=== PATIENT | female | born 1980 | race African-American/Black ===

== ENCOUNTER 2018-04-18 10:50 | Inpatient (IN) | payer OTHER ==
[2018-04-18] MEDS ORDERED: METHOCARBAMOL 500 MG TAB PO (12:30)
[2018-04-18] MEDS ORDERED: ACETAMINOPHEN 325 MG TAB PO (12:30)
[2018-04-18] MEDS ORDERED: NACL 0.9% 3 ML SYG IV (12:30)
[2018-04-18] MEDS ORDERED: ONDANSETRON 4 MG INJ IV (12:30)
[2018-04-18] MEDS: CITALOPRAM 20 MG TAB PO (13:49)
[2018-04-18] MEDS: TOPIRAMATE 100 MG TAB PO ×2 (13:49→21:41)
[2018-04-18] MEDS: LEVETIRACETAM 500 MG TAB PO ×2 (13:49→21:42)
[2018-04-18] MEDS: AMLODIPINE 2.5 MG TAB PO (13:49)
[2018-04-18] MEDS: LORATADINE 10 MG TAB PO (13:49)
[2018-04-18] MEDS: ACETAZOLAMIDE (SR) 500 MG CAP PO ×2 (13:49→21:41)
[2018-04-18] MEDS: FUROSEMIDE 20 MG TAB PO (13:53)
[2018-04-18] MEDS: NICOTINE (21 MG/24 HR) PATCH TRANSDERM (15:00)
[2018-04-18] MEDS: morphine 2 MG INJ IV (16:11)
[2018-04-18] MEDS: ONDANSETRON 4 MG INJ IV (16:11)
[2018-04-18] MEDS: MIRTAZAPINE 15 MG TAB PO (21:42)
[2018-04-19 06:00] LABS: ADD MAN DIFF? NO
[2018-04-19] MEDS: morphine 2 MG INJ IV ×3 (06:05→21:10)
[2018-04-19 06:38] LABS: ANION GAP 10 (8-16); BLOOD UREA NITROGEN 8 mg/dl (7-20); CALCIUM 8.7 mg/dl (8.4-10.2); CARBON DIOXIDE 17 mmol/L (21-31); CHLORIDE 120 mmol/L (97-110); GLUCOSE 88 mg/dl (70-220); MAGNESIUM 2.2 mg/dl (1.7-2.5); POTASSIUM 3.9 mmol/L (3.5-5.1); SODIUM 143 mmol/L (135-144)
[2018-04-19 06:43] LABS: WHITE BLOOD COUNT 8.7 10^3/ul (4.8-10.8)
[2018-04-19 06:43] LABS: BASOPHILS % 0.5 % (0.0-2.0); EOSINOPHILS # 0.2 10^3/ul (0.0-0.5); EOSINOPHILS % 1.7 % (0.0-7.0); HEMATOCRIT 38.3 % (37.0-47.0); HEMOGLOBIN 12.3 g/dl (12.0-16.0); LYMPHOCYTES # 3.9 10^3/ul (0.8-2.9); LYMPHOCYTES % 45.3 % (15.0-51.0); MEAN CORPUSCULAR HEMOGLOBIN 27.2 pg (29.0-33.0); MEAN CORPUSCULAR HGB CONC 32.1 g/dl (32.0-37.0); MEAN CORPUSCULAR VOLUME 84.5 fl (82.0-101.0); MEAN PLATELET VOLUME 12.5 fl (7.4-10.4); MONOCYTE # 0.5 10^3/ul (0.3-0.9); MONOCYTES % 5.5 % (0.0-11.0); NEUTROPHILS % 46.7 % (39.0-77.0); PLATELET COUNT 140 10^3/UL (140-415); RED BLOOD COUNT 4.53 10^6/ul (4.20-5.40); RED CELL DISTRIBUTION WIDTH 16.9 % (11.5-14.5)
[2018-04-19] MEDS: TOPIRAMATE 100 MG TAB PO ×2 (09:07→21:10)
[2018-04-19] MEDS: CITALOPRAM 20 MG TAB PO (09:07)
[2018-04-19] MEDS: LORATADINE 10 MG TAB PO (09:08)
[2018-04-19] MEDS: FUROSEMIDE 20 MG TAB PO (09:08)
[2018-04-19] MEDS: NICOTINE (21 MG/24 HR) PATCH TRANSDERM (09:08)
[2018-04-19] MEDS: LEVETIRACETAM 500 MG TAB PO ×2 (09:08→21:09)
[2018-04-19] MEDS: AMLODIPINE 2.5 MG TAB PO (09:08)
[2018-04-19] MEDS: ACETAZOLAMIDE (SR) 500 MG CAP PO ×3 (09:08→21:09)
[2018-04-19 10:30] LABS: ANISOCYTOSIS 1+ (0-0); BAND NEUTROPHILS % (M) 1 % (0-4); EOSINOPHILS % (M) 2 % (0-7); LYMPHOCYTES #M 4.4 10^3/ul (0.8-2.9); LYMPHOCYTES % (M) 51 % (15-51); METAMYELOCYTES #M 0.1 10^3/ul (0.0-0.0); METAMYELOCYTES %M 2 % (0-0); MONOCYTE #M 0.4 10^3/ul (0.3-0.9); MONOCYTES % (M) 5 % (0-11); PLATELET ESTIMATE DECREASED; PLATELET MORPHOLOGY COMMENT @See below; REACTIVE LYMPHOCYTES #M 0.7 10^3/ul (0.0-0.0); REACTIVE LYMPHOCYTES% (M) 9 % (0-0); SEG NEUT #M 2.6 10^3/ul (1.6-7.5); SEGMENTED NEUTROPHILS (M) % 30 % (39-77); SMUDGE%M 16 % (0-0)
[2018-04-19] MEDS: LORAZEPAM 2 MG INJ IV ×2 (11:16→16:23)
[2018-04-19] MEDS: ONDANSETRON 4 MG INJ IV (15:08)
[2018-04-19] MEDS: MIRTAZAPINE 15 MG TAB PO (21:10)
[2018-04-20] MEDS: morphine 2 MG INJ IV ×3 (06:38→22:12)
[2018-04-20 06:46] LABS: ADD MAN DIFF? NO
[2018-04-20 06:53] LABS: BASOPHILS % 0.4 % (0.0-2.0); EOSINOPHILS # 0.1 10^3/ul (0.0-0.5); EOSINOPHILS % 1.5 % (0.0-7.0); HEMATOCRIT 39.1 % (37.0-47.0); HEMOGLOBIN 12.4 g/dl (12.0-16.0); LYMPHOCYTES # 3.9 10^3/ul (0.8-2.9); LYMPHOCYTES % 43.1 % (15.0-51.0); MEAN CORPUSCULAR HEMOGLOBIN 27.1 pg (29.0-33.0); MEAN CORPUSCULAR HGB CONC 31.7 g/dl (32.0-37.0); MEAN CORPUSCULAR VOLUME 85.6 fl (82.0-101.0); MEAN PLATELET VOLUME 11.8 fl (7.4-10.4); MONOCYTE # 0.5 10^3/ul (0.3-0.9); NEUTROPHIL # 4.3 10^3/ul (1.6-7.5); NEUTROPHILS % 48.6 % (39.0-77.0); PLATELET COUNT 345 10^3/UL (140-415); RED BLOOD COUNT 4.57 10^6/ul (4.20-5.40); RED CELL DISTRIBUTION WIDTH 17.1 % (11.5-14.5)
[2018-04-20 06:53] LABS: WHITE BLOOD COUNT 8.9 10^3/ul (4.8-10.8)
[2018-04-20] MEDS: TOPIRAMATE 100 MG TAB PO ×2 (08:14→20:12)
[2018-04-20] MEDS: LEVETIRACETAM 500 MG TAB PO ×2 (08:14→20:12)
[2018-04-20] MEDS: CITALOPRAM 20 MG TAB PO (08:14)
[2018-04-20] MEDS: ACETAZOLAMIDE (SR) 500 MG CAP PO ×3 (08:14→20:12)
[2018-04-20] MEDS: AMLODIPINE 2.5 MG TAB PO (08:15)
[2018-04-20] MEDS: LORATADINE 10 MG TAB PO (08:15)
[2018-04-20] MEDS: FUROSEMIDE 20 MG TAB PO (08:15)
[2018-04-20] MEDS: NICOTINE (21 MG/24 HR) PATCH TRANSDERM (08:15)
[2018-04-20 08:51] LABS: ANION GAP 11 (8-16); BLOOD UREA NITROGEN 11 mg/dl (7-20); CALCIUM 8.9 mg/dl (8.4-10.2); CARBON DIOXIDE 18 mmol/L (21-31); CHLORIDE 117 mmol/L (97-110); CREATININE 0.94 mg/dl (0.44-1.00); GLUCOSE 89 mg/dl (70-220); PHOSPHORUS 4.6 mg/dl (2.5-4.9); POTASSIUM 3.4 mmol/L (3.5-5.1); SODIUM 143 mmol/L (135-144)
[2018-04-20] MEDS: POTASSIUM CHLORIDE 20 MEQ POWDER FOR ORAL SOLN PO (17:36)
[2018-04-20] MEDS: MIRTAZAPINE 15 MG TAB PO (20:12)
[2018-04-20] MEDS: LORAZEPAM 0.5 MG TAB PO (20:12)
[2018-04-21 06:52] LABS: ADD MAN DIFF? NO
[2018-04-21 07:01] LABS: WHITE BLOOD COUNT 9.2 10^3/ul (4.8-10.8)
[2018-04-21 07:01] LABS: BASOPHIL # 0.1 10^3/ul (0.0-0.1); BASOPHILS % 0.5 % (0.0-2.0); EOSINOPHILS # 0.1 10^3/ul (0.0-0.5); EOSINOPHILS % 1.4 % (0.0-7.0); HEMATOCRIT 40.8 % (37.0-47.0); HEMOGLOBIN 12.8 g/dl (12.0-16.0); LYMPHOCYTES # 3.8 10^3/ul (0.8-2.9); LYMPHOCYTES % 40.9 % (15.0-51.0); MEAN CORPUSCULAR HEMOGLOBIN 26.5 pg (29.0-33.0); MEAN CORPUSCULAR HGB CONC 31.4 g/dl (32.0-37.0); MEAN CORPUSCULAR VOLUME 84.5 fl (82.0-101.0); MEAN PLATELET VOLUME 11.6 fl (7.4-10.4); MONOCYTE # 0.6 10^3/ul (0.3-0.9); MONOCYTES % 6.1 % (0.0-11.0); NEUTROPHIL # 4.7 10^3/ul (1.6-7.5); NEUTROPHILS % 50.8 % (39.0-77.0); PLATELET COUNT 337 10^3/UL (140-415); RED BLOOD COUNT 4.83 10^6/ul (4.20-5.40); RED CELL DISTRIBUTION WIDTH 17.1 % (11.5-14.5)
[2018-04-21 08:02] LABS: ANION GAP 13 (8-16); BLOOD UREA NITROGEN 13 mg/dl (7-20); CALCIUM 8.8 mg/dl (8.4-10.2); CARBON DIOXIDE 17 mmol/L (21-31); CHLORIDE 116 mmol/L (97-110); CREATININE 0.88 mg/dl (0.44-1.00); GLUCOSE 100 mg/dl (70-220); MAGNESIUM 2.1 mg/dl (1.7-2.5); PHOSPHORUS 4.3 mg/dl (2.5-4.9); POTASSIUM 3.8 mmol/L (3.5-5.1); SODIUM 142 mmol/L (135-144)
[2018-04-21] MEDS: FUROSEMIDE 20 MG TAB PO (08:14)
[2018-04-21] MEDS: ACETAZOLAMIDE (SR) 500 MG CAP PO ×2 (08:14→13:53)
[2018-04-21] MEDS: AMLODIPINE 2.5 MG TAB PO (08:15)
[2018-04-21] MEDS: LEVETIRACETAM 500 MG TAB PO (08:15)
[2018-04-21] MEDS: LORATADINE 10 MG TAB PO (08:15)
[2018-04-21] MEDS: CITALOPRAM 20 MG TAB PO (08:15)
[2018-04-21] MEDS: TOPIRAMATE 100 MG TAB PO (08:16)
[2018-04-21] MEDS: NICOTINE (21 MG/24 HR) PATCH TRANSDERM (08:16)
[2018-04-21] MEDS: morphine LIQ (10 MG/5 ML) CUP PO (10:04)
== END 2018-04-21 16:00 | disposition home or self-care (01) | DRG 92 ==
LOC: TEL 10:50
DX: T85.01XA Breakdown (mechanical) of ventricular intracranial (communicating) shunt, initial encounter (principal); Z68.43 Body mass index [BMI] 50.0-59.9, adult; R51 Headache; E66.01 Morbid (severe) obesity due to excess calories; G93.2 Benign intracranial hypertension; I10 Essential (primary) hypertension; F17.200 Nicotine dependence, unspecified, uncomplicated; G40.909 Epilepsy, unspecified, not intractable, without status epilepticus; F41.9 Anxiety disorder, unspecified; Y83.8 Other surgical procedures as the cause of abnormal reaction of the patient, or of later complication, without mention of misadventure at the time of the procedure
CPT/HCPCS: 70544; 70552; 80048; 83735; 84100; 85025

== ENCOUNTER 2018-05-10 07:17 | Emergency (ER) | payer OTHER ==
[2018-05-10 08:47] LABS: ADD MAN DIFF? NO
[2018-05-10 08:51] LABS: BASOPHILS % 0.2 % (0.0-2.0); EOSINOPHILS # 0.1 10^3/ul (0.0-0.5); EOSINOPHILS % 0.7 % (0.0-7.0); HEMATOCRIT 40.2 % (37.0-47.0); HEMOGLOBIN 12.8 g/dl (12.0-16.0); LYMPHOCYTES # 3.3 10^3/ul (0.8-2.9); LYMPHOCYTES % 27.5 % (15.0-51.0); MEAN CORPUSCULAR HEMOGLOBIN 26.9 pg (29.0-33.0); MEAN CORPUSCULAR HGB CONC 31.8 g/dl (32.0-37.0); MEAN CORPUSCULAR VOLUME 84.6 fl (82.0-101.0); MEAN PLATELET VOLUME 11.8 fl (7.4-10.4); MONOCYTE # 0.7 10^3/ul (0.3-0.9); MONOCYTES % 5.5 % (0.0-11.0); NEUTROPHILS % 65.8 % (39.0-77.0); PLATELET COUNT 314 10^3/UL (140-415); RED BLOOD COUNT 4.75 10^6/ul (4.20-5.40); RED CELL DISTRIBUTION WIDTH 16.9 % (11.5-14.5)
[2018-05-10 08:51] LABS: WHITE BLOOD COUNT 12.1 10^3/ul (4.8-10.8)
[2018-05-10] MEDS: ONDANSETRON 4 MG INJ IV (08:51)
[2018-05-10] MEDS: morphine 4 MG/ML VIAL IV (08:55)
[2018-05-10 08:56] LABS: ADD UMIC YES; UR ASCORBIC ACID 40 mg/dL (NEGATIVE); UR BACTERIA FEW /HPF (NONE SEEN); UR BILIRUBIN (Dip) 1+ mg/dL (NEGATIVE); UR BLOOD (Dip) NEGATIVE (NEGATIVE); UR CLARITY SLIGHTLY CLOUDY (CLEAR); UR COLOR YELLOW (YELLOW); UR GLUCOSE (Dip) NEGATIVE (NEGATIVE); UR KETONES (Dip) NEGATIVE (NEGATIVE); UR LEUKOCYTE ESTERASE (Dip) 1+ Leu/ul (NEGATIVE); UR MUCUS FEW /HPF (NONE SEEN); UR NITRITE (Dip) NEGATIVE (NEGATIVE); UR RBC 1 /HPF (0-5); UR SPECIFIC GRAVITY (Dip) 1.029 (1.003-1.030); UR SQUAMOUS EPITHELIAL CELL FEW /HPF (FEW); UR TOTAL PROTEIN (Dip) NEGATIVE (NEGATIVE); UR UROBILINOGEN (Dip) NEGATIVE (NEGATIVE); UR WBC 4 /HPF (0-5)
[2018-05-10 09:14] LABS: ALANINE AMINOTRANSFERASE 17 IU/L (13-69); ALBUMIN 3.8 g/dl (3.3-4.9); ALBUMIN/GLOBULIN RATIO 0.97; ALKALINE PHOSPHATASE 115 IU/L (42-121); ANION GAP 11 (8-16); ASPARTATE AMINO TRANSFERASE 23 IU/L (15-46); BILIRUBIN,INDIRECT 0.1 mg/dl (0-1.1); BILIRUBIN,TOTAL 0.1 mg/dl (0.2-1.3); BLOOD UREA NITROGEN 8 mg/dl (7-20); CALCIUM 8.7 mg/dl (8.4-10.2); CARBON DIOXIDE 17 mmol/L (21-31); CHLORIDE 116 mmol/L (97-110); CREATININE 0.86 mg/dl (0.44-1.00); GLUCOSE 111 mg/dl (70-220); LIPASE 87 U/L (23-300); POTASSIUM 3.1 mmol/L (3.5-5.1); SODIUM 141 mmol/L (135-144); TOTAL PROTEIN 7.7 g/dl (6.1-8.1)
[2018-05-10] MEDS: POTASSIUM CHLORIDE (SR) 20 MEQ TAB PO (11:04)
== END 2018-05-10 11:14 | disposition home or self-care (01) ==
LOC: E/R 07:17
DX: E87.6 Hypokalemia (principal); R19.7 Diarrhea, unspecified; R40.2252 Coma scale, best verbal response, oriented, at arrival to emergency department; R40.2142 Coma scale, eyes open, spontaneous, at arrival to emergency department; R40.2362 Coma scale, best motor response, obeys commands, at arrival to emergency department
CPT/HCPCS: 36415; 70450; 80053; 81001; 81025; 83690; 85025; 96374; 96375; 99285-25

== ENCOUNTER 2018-05-29 20:07 | Emergency (ER) | payer OTHER ==
[2018-05-29 20:30] LABS: URINE BLOOD (Dip) POC Negative (NEGATIVE); URINE GLUCOSE (Dip) POC Negative (NEGATIVE); URINE KETONES (Dip) POC Negative (NEGATIVE); URINE LEUKOCYTE EST (Dip) POC 1+ (NEGATIVE); URINE NITRITE (Dip) POC Negative (NEGATIVE); URINE TOTAL PROTEIN POC Negative (NEGATIVE)
[2018-05-29] MEDS: LORAZEPAM 1 MG TAB PO (20:48)
[2018-05-29] MEDS: ONDANSETRON 4 MG INJ IM (20:48)
[2018-05-29] MEDS: KETOROLAC 30 MG INJ IM (20:52)
== END 2018-05-29 21:35 | disposition home or self-care (01) ==
LOC: E/R 20:07
DX: G44.209 Tension-type headache, unspecified, not intractable (principal); R42 Dizziness and giddiness; E66.01 Morbid (severe) obesity due to excess calories
CPT/HCPCS: 81003; 96372; 99284-25

== ENCOUNTER 2018-06-19 19:55 | Emergency (ER) | payer OTHER ==
[2018-06-19] MEDS: SOD CHLORIDE 0.9% 1,000 ML IV (20:50)
[2018-06-19] MEDS: LORAZEPAM 2 MG INJ IV (20:50)
[2018-06-19] MEDS: DIPHENHYDRAMINE 50 MG INJ IV (20:50)
[2018-06-19] MEDS: METOCLOPRAMIDE 10 MG INJ IV (20:50)
[2018-06-19 20:59] LABS: HEMOGLOBIN 12.7 g/dl (12.0-16.0); MEAN CORPUSCULAR HEMOGLOBIN 26.8 pg (29.0-33.0); MEAN CORPUSCULAR VOLUME 86.7 fl (82.0-101.0); PLATELET COUNT 352 10^3/UL (140-415); RED BLOOD COUNT 4.73 10^6/ul (4.20-5.40)
[2018-06-19 20:59] LABS: WHITE BLOOD COUNT 12.9 10^3/ul (4.8-10.8)
[2018-06-19 21:08] LABS: POSITIVE DIFF @See below
[2018-06-19 21:09] LABS: ADD MAN DIFF? YES
[2018-06-19 22:03] LABS: ANION GAP 7 (5-13); BLOOD UREA NITROGEN 10 mg/dl (7-20); CALCIUM 8.8 mg/dl (8.4-10.2); CARBON DIOXIDE 19 mmol/L (21-31); CHLORIDE 113 mmol/L (97-110); CREATININE 0.71 mg/dl (0.44-1.00); Estimated GFR > 60 mL/min (>60); GLUCOSE 95 mg/dl (70-220); POTASSIUM 3.3 mmol/L (3.5-5.1); SODIUM 139 mmol/L (135-144)
[2018-06-19 22:46] LABS: BASOPHIL #M 0.3 10^3/ul (0.0-0.0); BASOPHILS % (M) 3 % (0-2); EOSINOPHILS % (M) 3 % (0-7); LYMPHOCYTES #M 4.6 10^3/ul (0.8-2.9); LYMPHOCYTES % (M) 36 % (15-51); MONOCYTE #M 0.3 10^3/ul (0.3-0.9); MONOCYTES % (M) 3 % (0-11); PLATELET ESTIMATE NORMAL; REACTIVE LYMPHOCYTES #M 0.1 10^3/ul (0.0-0.0); REACTIVE LYMPHOCYTES% (M) 1 % (0-0); SEGMENTED NEUTROPHILS (M) % 54 % (39-77); SMUDGE%M 4 % (0-0)
== END 2018-06-19 23:10 | disposition home or self-care (01) ==
LOC: E/R 19:55
DX: G40.909 Epilepsy, unspecified, not intractable, without status epilepticus (principal); R40.2142 Coma scale, eyes open, spontaneous, at arrival to emergency department; R40.2362 Coma scale, best motor response, obeys commands, at arrival to emergency department; R40.2252 Coma scale, best verbal response, oriented, at arrival to emergency department; H92.03 Otalgia, bilateral; G43.909 Migraine, unspecified, not intractable, without status migrainosus; Z85.3 Personal history of malignant neoplasm of breast
CPT/HCPCS: 36415; 70450; 71045; 74018; 80048; 82962; 85025; 96361; 96374; 96375; 99285-25